=== PATIENT | female | born 1975 | race Caucasian/White ===

== ENCOUNTER 2018-10-16 12:33 | Emergency (ER) | payer MEDICAID, OTHER ==
[~2018-10-16] VITALS: Ht 165.1 cm; Wt 59.0 kg
[2018-10-16 12:55] LABS: Basophils # (auto) 0.1 uL; Basophils % (auto) 2.2 % (0.0-2.0); Eosinophils # (auto) 0.1 uL; Eosinophils % (auto) 1.1 % (0.0-7.0); Hematocrit 43.7 % (36.0-46.0); Hemoglobin 14.7 g/dL (12.2-16.2); Lymphocytes # (auto) 1.3 uL; Mean Corpuscular Hemoglobin 33.8 pg (28.0-32.0); Mean Corpuscular Hgb Conc. 33.6 g/dL (32.0-36.0); Mean Corpuscular Volume 100.7 fL (80.0-100.0); Monocytes # (auto) 0.7 uL; Monocytes % (auto) 12.5 % (0.0-12.0); Neutrophils # (auto) 3.6 uL; Neutrophils % (auto) 61.2 % (37.0-80.0); Nucleated Red Blood Cells % 0.1 %; Platelet Count (auto) 171 10^3/uL (140-450); Red Blood Cells 4.34 10^6/uL (4.0-5.20); Red Cell Distribution Width 14.6 % (11.8-14.3); White Blood Cell 5.9 10^3/uL (4.4-10.8)
[2018-10-16 13:21] LABS: Albumin 4.3 g/dL (3.4-5.0); Calcium 9.4 mg/dL (8.5-10.1); Potassium 4.8 mmol/L (3.5-5.1)
[2018-10-16 13:26] LABS: BUN/Creatinine Ratio 9.9; Bilirubin, Total 0.7 mg/dL (0.2-1.0); Total Protein 7.7 g/dL (6.4-8.2)
[2018-10-17 00:13] VITALS: BP 149/102
[2018-10-17] MEDS ORDERED: ONDANSETRON HCL 4 MG/2 ML VIAL IV ONE (00:15)
[2018-10-17] MEDS ORDERED: HYDROmorphone HCL 2 MG/ML VL IV ONE (00:15)
[2018-10-17] MEDS ORDERED: HYDROcodone-ACET 10/325MG TAB PO ONE (01:45)
[2018-10-17 02:32] LABS: Urine Bacteria FEW /hpf (None Seen); Urine Blood Negative /uL (Negative); Urine Specific Gravity 1.008 (1.001-1.035); Urine WBC 1 /hpf (0 - 5)
== END 2018-10-17 01:54 | disposition home or self-care (01) ==
LOC: ER 12:33
DX: N93.8 Other specified abnormal uterine and vaginal bleeding (principal); D25.9 Leiomyoma of uterus, unspecified; N83.209 Unspecified ovarian cyst, unspecified side
CPT/HCPCS: 36415; 74176; 80053; 81001; 84702; 85025; 96374; 96375; 99284; J1170; J2405

== ENCOUNTER 2019-01-08 12:36 | Inpatient (IN) | payer MEDICAID, OTHER | END 2019-01-11 18:30 | disposition left against medical advice (07) | LOC: TELE-CENTR 01-10 13:53 → CENTRAL 21:15 → ER 12:36 → OVERFLOW 12:37 → CENTRAL 21:46 | DX: R55 Syncope and collapse (principal); D25.9 Leiomyoma of uterus, unspecified; R11.2 Nausea with vomiting, unspecified; F10.10 Alcohol abuse, uncomplicated; D64.9 Anemia, unspecified; N80.0 Endometriosis of uterus; O09.529 Supervision of elderly multigravida, unspecified trimester ==